=== PATIENT | female | born 1960 | race Caucasian/White ===

== ENCOUNTER 2019-09-30 15:19 | Observation (INO) ==
[2019-09-30] MEDS ORDERED: Naloxone 0.4 MG/ML INJ IVP PRN (16:34)
[2019-09-30] MEDS ORDERED: *HR* Metoprolol 5 MG/5 ML VIAL IVP PRN (17:02)
[2019-09-30] MEDS: Ondansetron 4 MG/2 ML VIAL IVP PRN (21:49)
[2019-10-01 05:39] LABS: Hematocrit 37.3 % (35.3-44.9); Hemoglobin 11.8 g/dL (11.5-15.4); Mean Corpuscular HGB Conc 31.6 g/dL (31.6-35.5); Mean Corpuscular Hemoglobin 31.5 pg (28.0-33.3); Mean Corpuscular Volume 99.5 fL (83.0-100.0); Mean Platelet Volume 9.6 fL (9.4-12.4); Platelet Count 240 K/mcL (140-400); Red Blood Count 3.75 M/mcL (3.82-4.97); Red Cell Distribution Width 12.6 % (11.5-14.5); White Blood Count 4.9 K/mcL (4.3-11.1)
[2019-10-01 05:53] LABS: Calcium 8.6 mg/dL (8.6-10.3)
[2019-10-01 07:36] VITALS: BP 132/73
[2019-10-01] MEDS ORDERED: Bumetanide 1 MG TABLET PO PRN (08:01)
[2019-10-01] MEDS ORDERED: Nitroglycerin 0.4 MG TAB.SUBL SL PRN (08:01)
[2019-10-01] MEDS: Ondansetron 4 MG/2 ML VIAL IVP PRN (08:43)
[2019-10-01] MEDS ORDERED: Metoprolol XL (24 HR) Succ 25 MG TAB.ER.24H PO SCH (09:00)
== END 2019-10-01 14:20 | disposition home or self-care (01) ==
LOC: 3BNU
PROVIDERS: ADMIT Internal Medicine; ATTEND Internal Medicine

== ENCOUNTER 2020-03-08 15:50 | Observation (INO) ==
[2020-03-08 16:22] LABS: Basophils % 0.3 %; Eosinophils # 0.2 K/mcL (0.0-0.6); Eosinophils % 3.1 %; Hematocrit 38.6 % (35.3-44.9); Hemoglobin 12.5 g/dL (11.5-15.4); Immature Granulocytes % 0.3 % (0-4); Lymphocytes # 1.9 K/mcL (0.6-4.6); Lymphocytes % 27.6 %; Mean Corpuscular HGB Conc 32.4 g/dL (31.6-35.5); Mean Corpuscular Hemoglobin 31.6 pg (28.0-33.3); Mean Corpuscular Volume 97.5 fL (83.0-100.0); Mean Platelet Volume 9.3 fL (9.4-12.4); Monocytes # 0.5 K/mcL (0.0-1.3); Monocytes % 7.2 %; Neutrophils # 4.2 K/mcL (1.6-8.9); Platelet Count 279 K/mcL (140-400); Red Blood Count 3.96 M/mcL (3.82-4.97); Red Cell Distribution Width 12.6 % (11.5-14.5); Segmented Neutrophils % 61.5 %; White Blood Count 6.8 K/mcL (4.3-11.1)
[2020-03-08 16:27] LABS: INR 1.1; Prothrombin Time 12.4 Seconds (9.4-12.1)
[2020-03-08 16:30] LABS: Activated Partial Thrombo Time 32.8 Seconds (26.0-36.0)
[2020-03-08 16:40] LABS: Albumin 4.7 g/dL (3.5-5.7); Albumin/Globulin Ratio 1.9 (1.1-2.2); Bilirubin,Direct 0.1 mg/dL (0.0-0.2); Bilirubin,Indirect 0.4 mg/dL (0.0-1.0); Bilirubin,Total 0.5 mg/dL (0.3-1.0); Globulin 2.5 g/dL (2.4-3.5); Total Protein 7.2 g/dL (6.4-8.9)
[2020-03-08 16:42] LABS: BUN/Creatinine Ratio 18 (6-26); Blood Urea Nitrogen 22 mg/dL (8-23); Calcium 9.5 mg/dL (8.6-10.3); Carbon Dioxide 24 mEq/L (23-29); Chloride 105 mEq/L (98-107); Glucose 108 mg/dL (70-105); Osmolality,Calculated 292 (280-300); Potassium 3.4 mEq/L (3.5-5.1); Sodium 139 mEq/L (136-145); Troponin I < 0.03 ng/mL (< 0.04); eGFR For African Americans 53 (> 60); eGFR For Non-African Americans 44 (> 60)
[2020-03-08] MEDS ORDERED: Isovue-370 500 ML BOTTLE IVP ONE (17:04)
[2020-03-08 17:34] LABS: Bilirubin,Urine Negative (Negative); Blood,Urine Negative (Negative); Clarity,Urine Clear (Clear); Color,Urine Yellow (Yellow); Glucose,Urine (UA) Normal (Normal); Ketones,Urine Negative (Negative); Leukocyte Esterase,Urine Negative (Negative); Nitrite,Urine Negative (Negative); PH,Urine 5.5 pH Units (5.0-8.0); Protein,Urine Trace mg/dL (Neg-Trace); Specific Gravity,Urine > 1.030 (1.010-1.025); Urobilinogen,Urine Normal (Normal)
[2020-03-08] MEDS ORDERED: Ondansetron 4 MG/2 ML VIAL IVP STA (18:41)
[2020-03-08] MEDS ORDERED: Naloxone 0.4 MG/ML INJ IVP PRN (20:24)
[2020-03-08] MEDS ORDERED: Ondansetron 4 MG/2 ML VIAL IVP PRN (20:24)
[2020-03-08] MEDS ORDERED: Bumetanide 1 MG TABLET PO PRN (20:25)
[2020-03-08] MEDS ORDERED: Acetaminophen 325 MG TABLET PO PRN (20:25)
[2020-03-08] MEDS ORDERED: Nitroglycerin 0.4 MG TAB.SUBL SL PRN (20:25)
[2020-03-08] MEDS ORDERED: Acetaminophen 325 MG TABLET PO SCH (21:00)
[2020-03-09] MEDS: *HR* Heparin 5,000 UNIT/ML VIAL SQ SCH ×2 (02:41→06:21)
[2020-03-09 06:32] LABS: Hematocrit 35.5 % (35.3-44.9); Hemoglobin 11.6 g/dL (11.5-15.4); Mean Corpuscular HGB Conc 32.7 g/dL (31.6-35.5); Mean Corpuscular Hemoglobin 32.3 pg (28.0-33.3); Mean Corpuscular Volume 98.9 fL (83.0-100.0); Mean Platelet Volume 9.6 fL (9.4-12.4); Platelet Count 252 K/mcL (140-400); Red Blood Count 3.59 M/mcL (3.82-4.97); Red Cell Distribution Width 12.7 % (11.5-14.5); White Blood Count 5.9 K/mcL (4.3-11.1)
[2020-03-09 06:54] LABS: Calcium 9.2 mg/dL (8.6-10.3); Magnesium 1.9 mg/dL (1.6-2.6); Potassium 3.6 mEq/L (3.5-5.1)
[2020-03-09] MEDS ORDERED: Cholecalciferol (D-3) 1,000 UNIT (25MCG) TABLET PO SCH (09:00)
[2020-03-09] MEDS ORDERED: Metoprolol XL (24 HR) Succ 25 MG TAB.ER.24H PO SCH (09:00)
[2020-03-09] MEDS ORDERED: Regadenoson 0.4 MG/5 ML SYRINGE IVP ONE (10:38)
[2020-03-09 16:39] VITALS: BP 123/77
== END 2020-03-09 16:39 | disposition home or self-care (01) ==
LOC: EMEROOARM 15:50 → 3BNU 15:50
PROVIDERS: ADMIT Internal Medicine; ATTEND Internal Medicine